=== PATIENT | female | born 1980 | race Caucasian/White ===

== ENCOUNTER 2018-04-16 14:10 | Emergency (ER) | payer BC ==
[~2018-04-16] VITALS: Ht 177.8 cm; Wt 108.9 kg
[2018-04-16 14:25] VITALS: BP 147/93; Ht 177.8 cm; Wt 108.9 kg
== END 2018-04-16 16:40 | disposition home or self-care (01) ==
LOC: ED 14:10
DX: S61.215A Laceration without foreign body of left ring finger without damage to nail, initial encounter (principal); F41.9 Anxiety disorder, unspecified; F32.9 Major depressive disorder, single episode, unspecified; W26.0XXA Contact with knife, initial encounter; Y93.89 Activity, other specified; Y92.89 Other specified places as the place of occurrence of the external cause; Y99.8 Other external cause status
CPT/HCPCS: 90715; J2001